=== PATIENT | male | born 1990 | race Caucasian/White ===

== ENCOUNTER 2019-07-16 16:32 | Emergency (ER) | payer MEDICAID ==
[~2019-07-16] VITALS: Ht 170.2 cm; Wt 79.4 kg
[2019-07-16 16:45] VITALS: BP 146/95
[2019-07-16] MEDS ORDERED: AZIT250T83 PO (18:02)
[2019-07-16] MEDS ORDERED: ALBU8HFA PO (18:02)
== END 2019-07-16 18:22 | disposition home or self-care (01) ==
LOC: ER 16:33
DX: J20.9 Acute bronchitis, unspecified (principal)
CPT/HCPCS: 99283

== ENCOUNTER 2024-07-11 17:22 | Emergency (ER) | payer MEDICAID ==
[~2024-07-11] VITALS: Ht 170.2 cm; Wt 86.8 kg
[2024-07-11] MEDS ORDERED: NAPR-56 PO (19:16)
[2024-07-11] MEDS ORDERED: LIDO700A32 TOP (19:16)
[2024-07-11] MEDS: LIDOcaine 5% patch TP ONE (19:29)
[2024-07-11] MEDS: ketorolac trometh 15mg/ml vial 15 MG/ML ML IM ONE (19:30)
[2024-07-11 19:50] VITALS: BP 142/96; PULSE 70; RESP 18; TEMP 98.6; O2SAT 99
== END 2024-07-11 19:53 | disposition home or self-care (01) ==
LOC: ER 17:22
DX: M54.59 Other low back pain (principal); Z79.899 Other long term (current) drug therapy
CPT/HCPCS: 96372; 99283; J1885